=== PATIENT | male | born 1975 | race Caucasian/White ===

== ENCOUNTER 2021-03-15 09:36 | Outpatient (REF) | payer OTHER, SELFPAY ==
[2021-03-15 11:21] LABS: Alanine Aminotransferase 39 U/L (0-40); Albumin Level 4.5 g/dL (3.5-5.0); Alkaline Phosphatase 60 U/L (39-117); Anion Gap 11 (12-20); Aspartate Amino Transferase 27 U/L (5-37); Bilirubin Total 0.5 mg/dL (0.0-1.0); Blood Urea Nitrogen 10 mg/dL (9-16); Calcium 9.4 mg/dL (8.4-10.2); Carbon Dioxide 27 mmol/L (22-29); Chloride 105 mmol/L (96-108); Cholesterol 169 mg/dL; Estimated Glomerular Filt Rate > 60; Glucose Fasting 95 mg/dL (60-99); HDL Cholesterol 39 mg/dL; LDL Cholesterol Calculated 102 mg/dl; Potassium 4.3 mmol/L (3.3-5.1); Sodium 139 mmol/L (135-145); Total Protein 6.8 g/dL (6.5-8.0); Triglycerides 142 mg/dL
[2021-03-15 11:53] LABS: TSH reflex Free T4 0.07 uIU/mL (0.32-4.0)
[2021-03-15 12:25] LABS: Free T4 (Free Thyroxine) 1.47 ng/dL (0.71-1.85); Prostate Specific Antigen Scr 0.16 ng/mL (<0.05-4.0)
== END 2021-03-15 09:37 | disposition home or self-care (01) ==
LOC: HO.WFDLDS 09:36
PROVIDERS: Visit Provider Family Medicine
DX: Z00.00 Encounter for general adult medical examination without abnormal findings (principal); Z12.5 Encounter for screening for malignant neoplasm of prostate; E78.6 Lipoprotein deficiency
CPT/HCPCS: 36415; 80053; 80061; 84153; 84439; 84443

== ENCOUNTER → 2021-03-28 10:11 | Outpatient (REF) | payer OTHER, SELFPAY ==
--- NOTE | 2021-03-28 10:16 | CA_ITS ---
Acquisition Time: 2021-03-28 11:02:31 Total Exercise Time: 00:06:00 Test Indications: CP Medications: SEE CHART Protocol: ALFONZO Max HR: 126 BPM 72% of Pred: 173 BPM Max BP: 172/100 mmHG Max Work Load: 7.0 METS Exercise stress test with exercise 6 min of Alfonzo protocol , achieving 72% MPHR, test stopped due to EKG abnormality and report of 2/10 left chest tightness, no sob, with isolated PAC, with normotensive response to exercise, with EKG changes meeting criteria for ischemia: horizontal ST depression 2 mm inferiorly, 1.5 mm V3, downhsloping ST depression 1.5 mm V4-V5, 1mm V6, ST elevation 1 mm AVR with gradual improvement and return to baseline in recovery, with resolution of his discomfort in early recovery. Test reviewed with Dr Eldridge. EKG tracings reviewed with Dr Eldridge, Pt instructed on starting aspirin 81mg daily, Metoprolol xl 25mg daily. Continue his statin. Arranging for cardiology office visit. Referred By: Diomedes Balbuena Overread By: TRAE SUMNER
== END ==
LOC: HO.CARD 10:11
PROVIDERS: Visit Provider Family Medicine
DX: R07.9 Chest pain, unspecified (principal); E78.5 Hyperlipidemia, unspecified; Z82.49 Family history of ischemic heart disease and other diseases of the circulatory system
CPT/HCPCS: 93017

== ENCOUNTER 2021-03-30 07:52 | Outpatient (REF) | payer OTHER, SELFPAY ==
[2021-03-30 09:46] LABS: Hematocrit 44.1 % (42-52); Mean Corpuscular Hemoglobin 30.5 pg (27.0-33.0); Mean Corpuscular Volume 89.8 fL (80-98); Mean Platelet Volume 10.1 fL (9.4-12.4); Platelet Count 234 X10*3/uL (160-400); Red Blood Count 4.91 X10*6/uL (4.60-5.80); Red Cell Distribution Width 12.4 % (11.0-16.0); White Blood Count 6.7 X10*3/uL (4.8-10.8)
[2021-03-30 09:49] LABS: Prothrombin Time 11.7 SEC (9.9-13.0)
[2021-03-30 10:26] LABS: Anion Gap 12 (12-20); Blood Urea Nitrogen 14 mg/dL (9-16); Calcium 10.5 mg/dL (8.4-10.2); Carbon Dioxide 28 mmol/L (22-29); Chloride 104 mmol/L (96-108); Estimated Glomerular Filt Rate > 60; Glucose Random 95 mg/dL (60-115); Potassium 4.7 mmol/L (3.3-5.1); Sodium 139 mmol/L (135-145)
== END 2021-03-30 07:53 | disposition home or self-care (01) ==
LOC: HO.LAB 07:52
PROVIDERS: PCP Family Medicine; Referring Provider Family Medicine; Visit Provider Internal Medicine Cardiovascular Disease
DX: I20.0 Unstable angina (principal)
CPT/HCPCS: 36415; 80048; 85027; 85610; 93005; 99202

== ENCOUNTER → 2021-05-09 14:27 | Outpatient (BNVA) | payer OTHER, MEDICARE, MEDICAID, SELFPAY | PROVIDERS: PCP Family Medicine; Referring Provider Family Medicine; Visit Provider Nurse Practitioner Family | DX: I25.10 Atherosclerotic heart disease of native coronary artery without angina pectoris (principal); I20.0 Unstable angina; Z98.890 Other specified postprocedural states; Z95.5 Presence of coronary angioplasty implant and graft | CPT/HCPCS: 99212 ==

== ENCOUNTER → 2021-05-23 07:25 | Outpatient (REF) | payer OTHER, MEDICARE, MEDICAID, SELFPAY ==
--- NOTE | 2021-05-23 07:40 | CA_ITS ---
Transthoracic Echocardiogram Patient (Last, First, Middle): Arvind Michel, Gender: Male Date of : 1975 Age: 45 Procedure Date: 05/23/2021 Procedure Type: Transthoracic Echocardiogram Location: OP Height: 165.1 cm Weight: 80.29 kg BSA: 1.88 m2 Heart Rate: bpm BP: 12 / 60 mmHg Silver Service Waiter: SHARON Referring MD: Ishan Eldridge MD Air Traffic Control Operator: Ishan Eldridge MD Symptoms: I20.0 - Unstable angina S/P STENTS X2 Study Quality: Fair ECG Rhythm: Sinus Conclusions: - 1. Normal LV systolic and diastolic function with regional wall motion abnormality in RCA territory 2. Mildly dilated left atrium 3. Trivial aortic regurgitation 4. Normal RV systolic pressure 5. No gross pericardial effusion Findings Left Ventricle Normal left ventricular size, thickness, and systolic function. The visually estimated ejection fraction is between 55-60%. Spectral Doppler is indicative of a normal filling pattern. Wall Motion Rest Echo Findings The basal inferior and basal inferoseptal segments are hypokinetic. All other scored wall segments showed normal motion. Right Ventricle Normal right ventricular cavity size and systolic function. Atria The left atrium is mildly dilated. The right atrium is normal in size. Aortic Valve There is mild thickening of the aortic valve. There is no aortic valve stenosis. There is trace (trivial) aortic valve regurgitation. Mitral Valve Normal mitral valve structure and function. There is trace mitral valve regurgitation. There is no mitral valve stenosis. Pulmonic Valve The pulmonic valve was not well visualized. Tricuspid Valve Normal tricuspid valve structure. There is trace tricuspid valve regurgitation. The right ventricular systolic pressure is 18 mmHg. Normal right atrial pressure. There is no evidence of pulmonary hypertension. Great Vessels All visible segments of the aorta are normal in size. The pulmonary artery was not well visualized. Venous The inferior vena cava is normal in size and collapses greater than 50% with inspiration. Pericardium/Pleural There is no evidence of pericardial effusion. Prior Study Comparison No prior study available for comparison. Measurements 2D Linear Measurements IVSd: 0.98 0.6-0.9/0.6-1.0 cm LVIDd: 4.78 3.9-5.3/4.2-5.9 cm LVIDd Index: 2.54 2.4-3.2/2.2-3.1 cm/m2 LVIDs: 2.83 2.0-3.6 cm LVPWd: 0.98 0.7-1.1 cm Ao Root: 2.90 2.1-3.5 cm LA Diam: 4.30 2.7-3.8/3.0-4.0 cm LAIDs Index: 2.29 1.5-2.3 cm/m2 LV Mass: 204.42 67-162/88-224 g LV Mass Index: 108.73 43-95/49-115 g/m2 LVOT Diam: 2.10 3.0+(-)1.3 cm 2D Systolic Function EF 4C: 56.90 >55% EF 2C: 51.50 >55% EF BiP: 54.20 >55% Mitral Valve MV Pk E: 0.93 MV PK A: 0.54 MV Decel Time: 194.00 E/A: 1.70 E'Lateral: 12.10 E'Medial: 6.85 E/E' Med: 13.60 E/E' Lat: 7.70 PHT: 57.00 MVA PHT: 3.86 Decel [place]: 4.80 Aortic Valve AoV Pk Marco: 1.55 AoV Mn Marco: 0.97 AoV VTI: 0.34 AoV Pk Grad: 10.00 Aov Mn Grad: 5.00 HUMBLE Cont.VTI: 2.47 LVOT LVOT Pk Marco: 1.12 LVOT Mn Marco: 0.70 LVOT VTI: 0.24 LVOT Pk Grad: 5.00 LVOT Mn Grad: 3.00 LVOT Diam: 2.10 LVOT Area: 3.46 Diastolic Function MV Pk E: 0.93 MV Pk A: 0.54 E/A: 1.70 E'Medial: 6.85 E/E' Med: 13.60 E' Laterial: 12.10 E/E' Lat: 7.70 Right Ventricle TAPSE (mm): 25.00 TVS' Marco: 11.00 Tricuspid Valve TR Pk Marco: 1.92 TR Pk Grad: 15.00 RA Press: 3.00 RVSP: 18.00 Great Vessels Aorta Ao Root-2D: 2.90 2.0-3.7 cm Ao Asc: 2.70 2.1-3.4 cm Pulmonary Valve PV Pk Marco: 1.02 Peak PV Grad: 4.00 Updated in Other Vendor System with Status of Final Ishan Eldridge MD electronically signed on 05/23/2021 2:14:14 PM with status of Final
== END ==
LOC: HO.CARD 07:25
PROVIDERS: PCP Family Medicine; Visit Provider Internal Medicine Cardiovascular Disease
DX: I20.0 Unstable angina (principal)
CPT/HCPCS: 93306

== ENCOUNTER 2021-08-09 08:35 | Outpatient (REF) | payer OTHER, SELFPAY ==
[2021-08-09 11:05] LABS: Anion Gap 12 (12-20); Blood Urea Nitrogen 14 mg/dL (9-16); Carbon Dioxide 28 mmol/L (22-29); Chloride 104 mmol/L (96-108); Cholesterol 139 mg/dL; Estimated Glomerular Filt Rate > 60; Glucose Random 96 mg/dL (60-115); HDL Cholesterol 30 mg/dL; LDL Cholesterol Calculated 87 mg/dl; Potassium 4.5 mmol/L (3.3-5.1); Sodium 139 mmol/L (135-145); Triglycerides 114 mg/dL
[2021-08-09 11:35] LABS: Creatinine Urine 186.36 mg/dL; Microalbum/Creatinine Ratio Ur 2.6 ug/mg cr
== END 2021-08-09 08:36 | disposition home or self-care (01) ==
LOC: HO.WFDLDS 08:35
PROVIDERS: Visit Provider Family Medicine
DX: Z00.00 Encounter for general adult medical examination without abnormal findings (principal); I25.10 Atherosclerotic heart disease of native coronary artery without angina pectoris; I10 Essential (primary) hypertension
CPT/HCPCS: 36415; 80048; 80061; 82043

== ENCOUNTER → 2021-08-30 15:06 | Outpatient (BNVA) | payer OTHER, SELFPAY | PROVIDERS: PCP Family Medicine; Referring Provider Family Medicine; Visit Provider Nurse Practitioner Family | DX: I25.110 Atherosclerotic heart disease of native coronary artery with unstable angina pectoris (principal); E78.5 Hyperlipidemia, unspecified; R94.6 Abnormal results of thyroid function studies; Z79.02 Long term (current) use of antithrombotics/antiplatelets; Z79.82 Long term (current) use of aspirin; Z79.899 Other long term (current) drug therapy; Z95.5 Presence of coronary angioplasty implant and graft; Z98.890 Other specified postprocedural states | CPT/HCPCS: 93005 ==

== ENCOUNTER 2021-08-31 10:24 | Outpatient (REF) | payer OTHER, SELFPAY ==
[2021-08-31 11:28] LABS: Cholesterol 143 mg/dL; HDL Cholesterol 35 mg/dL; LDL Cholesterol Calculated 87 mg/dl; Triglycerides 108 mg/dL
[2021-08-31 11:49] LABS: TSH reflex Free T4 < 0.01 uIU/mL (0.32-4.0)
[2021-08-31 12:33] LABS: Free T4 (Free Thyroxine) 1.46 ng/dL (0.71-1.85)
== END 2021-08-31 10:25 | disposition home or self-care (01) ==
LOC: HO.LAB 10:24
PROVIDERS: PCP Family Medicine; Visit Provider Nurse Practitioner Family
DX: Z00.00 Encounter for general adult medical examination without abnormal findings (principal); I25.10 Atherosclerotic heart disease of native coronary artery without angina pectoris
CPT/HCPCS: 36415; 80061; 84439; 84443

== ENCOUNTER → 2021-10-03 09:53 | Outpatient (REF) | payer OTHER, SELFPAY ==
--- NOTE | ~2021-10-03 | NM_ITS ---
EXAMINATION: THYROID UPTAKE AND SCAN CLINICAL INFORMATION: Other specified abnormal findings of blood chemistry. TSH < 0.01. COMPARISON: No previous thyroid imaging studies are available for comparison. TECHNIQUE: Following the oral administration of 274 microcuries of I-123 sodium iodide, thyroid uptake was performed and expressed as a percentage of the administrated dose. Gamma scintillation camera images of the thyroid in the anterior and right and left anterior oblique views were obtained using a pinhole collimator following the administration of 10 mCi Tc-99m pertechnetate. FINDINGS: The uptake is 9.7% at 4 hours and 32.4% at 24 hours (Normal radioiodine uptake at 24 hours is 10% to 30%). The radioiodine uptake is mildly elevated. The radiopertechnetate thyroid scintigram demonstrates the thyroid gland to be normal in size, shape, and position. There is homogeneous distribution of activity within the the gland with no focal abnormalities noted. The trapping function there is moderately increased diffusely. A single anterior radioiodine image obtained at the time of the 24-hour uptake measurement is similar to the radio pertechnetate image. NM/NM thyroid w uptake IMPRESSION: Mildly elevated radioiodine uptake and diffusely increased trapping function are noted. The thyroid scan is otherwise unremarkable with no nodules visualized. In the clinical setting of suppressed TSH, these findings are most consistent with Graves' disease.
[2021-10-03 11:24] LABS: Thyroid Stimulating Hormone < 0.01 uIU/mL (0.32-4.0)
[2021-10-05 02:21] LABS: Triiodothyronine T3 Free 5.2 pg/mL (2.3-4.2)
[2021-10-06 21:11] LABS: Thyrotropin Receptor Antibody 3.43 IU/L (<=2.00)
== END ==
LOC: HO.NUCMED 09:53
PROVIDERS: PCP Family Medicine; Visit Provider Internal Medicine Endocrinology, Diabetes & Metabolism
DX: R79.89 Other specified abnormal findings of blood chemistry (principal)
CPT/HCPCS: 36415; 78014; 83520; 84443; 84481; A9512; A9516

== ENCOUNTER → 2021-10-16 14:38 | Outpatient (BNVA) | payer OTHER, SELFPAY | PROVIDERS: PCP Family Medicine; Visit Provider Internal Medicine Endocrinology, Diabetes & Metabolism | DX: R79.89 Other specified abnormal findings of blood chemistry (principal) ==